=== PATIENT | female | born 1995 | race Caucasian/White ===

== ENCOUNTER 2017-02-05 21:52 | Emergency (ER) | payer OTHER ==
--- NOTE | 2017-02-05 21:57 | ED Physician Documentation ---
General Adult - HISTORIAN Historian: patient - HPI Stated Complaint: , ? dilated Chief Complaint: General Adult Onset: hours Timing: still present Severity: moderate Further Comments: yes (Pt is a 21 yo female @ 37 weeks. Pt was monitored for 4 hrs at [facility] last week and sent home. At that time contractions were 5 min apart and pt states that she was 3 cm dilated and 50% effaced. Pt has had some sharp intermittent vaginal pains that last a minute or more. No loss of fluid, no vag bleeding. Pt feels good movement. Pt called OB doctor at [facility] and was told to get checked to see if she is more dilated. Pt has planned induction for February 22.) - ROS CONST: no problems EYES/ENT: none CVS/RESP: none GI/: none MS/SKIN/LYMPH: none - PAST HX Past History: asthma, other ( x 3.) Surgeries/Procedures: cholecystectomy Allergies/Adverse Reactions: Allergies Allergy/AdvReac Type Severity Reaction Status Date / Time No Known Allergies Allergy Verified 02/05/17 22:33 Home Medications: Ambulatory Orders Medication Instructions Recorded Albuterol Sulfate [Proair Hfa] 2 inhalation IH Q 4-6 HRS PRN #1 05/10/15 each Cephalexin [Keflex] 500 mg PO Q12H #20 capsule 02/05/17 - SOCIAL HX Smoking History: non-smoker - FAMILY HX Family History: No - VITAL SIGNS Vital Signs: Vital Signs Temp Pulse Resp BP Pulse Ox 128/70 01/24/16 23:10 - REVIEWED ASSESSMENTS Nursing Assessment Reviewed: Yes Vitals Reviewed: Yes Progress - Progress Progress: Pt's front facer is Dr. Claudio Du. FHT's 128 U/a 1+ leukoesterase 1 L NS IVF in ER Keflex 500 mg po Rx Keflex 500 mg. Take one by mouth every 12 hrs for 10 days. D/w Dr. Byrd, on-call for Dr. Du at [facility]. Will d/c pt home. Pt should f/u at [facility] and go to either [facility] or [facility] if contractions increase or for any new concerns. General Adult Physical Exam - PHYSICAL EXAM GENERAL APPEARANCE: mild distress EENT: eye inspection normal, pharynx normal NECK: normal inspection, supple RESPIRATORY: no resp distress, chest non-tender, breath sounds normal CVS: reg rate & rhythm, heart sounds normal ABDOMEN: soft, no organomegaly, normal bowel sounds, other (gravid; pelvic digital exam 1-2 cm dilated, 40-50% effaced. ) BACK: normal inspection, no CVA tenderness SKIN: warm/dry, normal color EXTREMITIES: non-tender, normal range of motion, no evidence of injury NEURO: oriented X3, motor nml Discharge Clincal Impression: UTI (urinary tract infection) Qualifiers: Urinary tract infection type: site unspecified Hematuria presence: without hematuria Qualified Code(s): N39.0 - Urinary tract infection, site not specified Prescriptions: Cephalexin [Keflex] 500 mg PO Q12H #20 capsule Referrals: Primary Doctor,No [Primary Care Provider] - Home Medications: Ambulatory Orders Albuterol Sulfate [Proair Hfa] 2 inhalation IH Q 4-6 HRS PRN #1 each 05/10/15 Cephalexin [Keflex] 500 mg PO Q12H #20 capsule 02/05/17 Condition: Good Disposition: 01 HOME, SELF-CARE Decision to Admit: NO Decision Time: 23:13
[2017-02-05] MEDS ORDERED: CEPHALEXIN 250 MG CAPSULE PO ONE ×2 (22:16→23:23)
[2017-02-05] MEDS ORDERED: 0.9 % SODIUM CHLORIDE 1,000 ML IV ONE (22:16)
[2017-02-06 00:01] VITALS: BP 116/66
[2017-02-06 05:31] LABS: APPEARANCE,URINE CLEAR (CLEAR); COLOR,URINE YELLOW (YELLOW); OCCULT BLOOD,URINE NEGATIVE (NEGATIVE); UROBILINOGEN URINE 0.2 Eu (0.2-1.0)
== END 2017-02-05 23:50 | disposition home or self-care (01) ==
LOC: ED 21:52
DX: O23.43 Unspecified infection of urinary tract in pregnancy, third trimester (principal)
CPT/HCPCS: 81002; 87086; J7030; 99283; S1016

== ENCOUNTER 2017-06-15 10:09 | Outpatient (CLI) | payer OTHER ==
[2017-02-06 00:01] VITALS: BP 116/66
== END 2017-06-15 10:10 ==
LOC: LAB 10:09
PROVIDERS: ATTEND Physician Assistant
DX: R53.83 Other fatigue (principal); R63.5 Abnormal weight gain
CPT/HCPCS: 36415; 84439; 84443

== ENCOUNTER 2017-12-07 16:28 | Outpatient (CLI) | payer OTHER ==
[2017-02-06 00:01] VITALS: BP 116/66
== END 2017-12-07 16:30 ==
LOC: LABRHC 16:28
PROVIDERS: ATTEND Physician Assistant
DX: J02.9 Acute pharyngitis, unspecified (principal); R50.9 Fever, unspecified
CPT/HCPCS: 87070

== ENCOUNTER 2018-04-17 10:22 | Emergency (ER) | payer OTHER ==
[2018-04-17] MEDS ORDERED: ONDANSETRON HCL/PF 4 MG/ 2ML VIAL IVP ONE (10:41)
[2018-04-17] MEDS ORDERED: 0.9 % SODIUM CHLORIDE 1,000 ML IV ONE ×2 (10:41→10:43)
[2018-04-17] MEDS ORDERED: KETOROLAC TROMETHAMINE 30 MG/1ML VIAL IVP ONE (10:41)
--- NOTE | 2018-04-17 10:41 | ED Physician Documentation ---
General Adult - HISTORIAN Historian: patient - HPI Stated Complaint: abd pain Chief Complaint: General Adult Onset: hours (4) Timing: still present Severity: moderate Further Comments: yes (Pt is a 22 yo female with LLQ abd pain. Pt often has abd pain during menses, as now, but usually it is not so painful as this. Sx began at 4:00 am. Pain can vary in intensity. Pt has no hx kidney stone. Pt had been told she had endometriosis, but later was told she did not have endometriosis when she underwent surgery for BTL. Pt has hx cholecystectomy. Pt notes she has a chronically elevated wbc count as do other women in her family. Pt has had some diarrhea, which says she gets from time to time.) - ROS CONST: no problems EYES/ENT: none CVS/RESP: none GI/: abdominal pain (LLQ), other (diarrhea) MS/SKIN/LYMPH: none - PAST HX Past History: other (dysmenorrhea, asthma, ? endometriosis) Surgeries/Procedures: BTL, cholecystectomy, other (lypoma removal x 3) Allergies/Adverse Reactions: Allergies Allergy/AdvReac Type Severity Reaction Status Date / Time aspirin AdvReac Vomiting Verified 04/17/18 10:59 - SOCIAL HX Smoking History: cigarettes - FAMILY HX Family History: No - VITAL SIGNS Vital Signs: Vital Signs Temp Pulse Resp BP Pulse Ox 116/66 02/05/17 23:50 - REVIEWED ASSESSMENTS Nursing Assessment Reviewed: Yes Vitals Reviewed: Yes Progress - Progress Progress: NS 1 L IVF Zofran 4 mg IV Toradol 30 mg IV much improvement after Toradol X-ray abd: Gas filled mildly dilated small bowel is present in the left midabdomen. There is gas and stool in the cecum and the hepatic flexure of the colon. Surgical clips are present consistent with cholecystectomy. The osseous structures are normal for age. Rx Toradol 10 mg. Take 1 every 6 hrs as needed for pain. Maximum 4 tablets/ day. Maximum duration 5 days. Rx Zofran ODT 4 mg. Take one every 8 hrs as needed for nausea/vomiting. Return to radiology dept. for ultrasound study on 04-19-18 at 10:00 am to evaluate for ovarian cyst. d/w Dr. Frye re: follow up after u/s. General Adult Physical Exam - PHYSICAL EXAM GENERAL APPEARANCE: moderate distress EENT: pharynx normal NECK: normal inspection, supple RESPIRATORY: no resp distress, chest non-tender, breath sounds normal CVS: reg rate & rhythm, heart sounds normal ABDOMEN: soft, normal bowel sounds, tenderness (LLQ) SKIN: warm/dry, normal color EXTREMITIES: non-tender, normal range of motion, no evidence of injury NEURO: oriented X3, motor nml, sensation nml Discharge Clincal Impression: History of dysmenorrhea Abdominal pain Qualifiers: Abdominal location: left lower quadrant Qualified Code(s): R10.32 - Left lower quadrant pain Referrals: Primary Doctor,No [Primary Care Provider] - Condition: Stable Disposition: HOME, SELF-CARE Decision to Admit: NO Decision Time: 13:00
[2018-04-17] MEDS ORDERED: KETOROLAC TROMETHAMINE 30 MG/1ML VIAL ONE (10:42)
[2018-04-17] MEDS ORDERED: ONDANSETRON HCL/PF 4 MG/ 2ML VIAL ONE (10:43)
[2018-04-17 11:07] LABS: BASOPHILS % 0.7 (0.0-1.5); EOSINOPHILS % 2.6 % (0.0-6.8); MEAN CORPUSCULAR HEMOGLOBIN 29.6 pg (28.0-34.0); MONOCYTES % 3.2 % (0.0-11.0); NEUTROPHILS # 12.1 # k/uL (1.4-7.7)
[2018-04-17 11:21] LABS: eGFR (African) > 60; eGFR (Non-African) > 60
[2018-04-17 13:10] VITALS: BP 102/52
--- NOTE | 2018-04-17 18:21 | Diagnostic Imaging Report ---
MERE LAWSON [facility] [id number] [facility] [address] [place] [address]. [id number] Report Submission Date: Apr 17, 2018 12:30:39 PM CDT Patient Study Name: FAIZA MISTRY Date: Apr 17, 2018 11:58:52 AM CDT Modality Type: DX Gender: F Description: ABDOMEN : 89 Institution: [facility] Physician: MERE LAWSON Abdomen KUB Date of Exam: April 17, 2018. History: LT ABDOMINAL PAIN X 1 DAYS (Hx) / ITS.REASON abd pain Findings: Gas filled mildly dilated small bowel is present in the left midabdomen. There is gas and stool in the cecum and the hepatic flexure of the colon. Surgical clips are present consistent with cholecystectomy. The osseous structures are normal for age. Impression: Nonspecific abdominal bowel gas pattern with mildly dilated small bowel in the left midabdomen. Electronically signed on Apr 17, 2018 12:30:39 PM CDT by: Thea ROBISON
[2018-04-18 07:34] LABS: APPEARANCE,URINE CLOUDY (CLEAR); COLOR,URINE YELLOW (YELLOW); OCCULT BLOOD,URINE 3+ (NEGATIVE); URINE HCG NEGATIVE (NEGATIVE); UROBILINOGEN URINE 0.2 Eu (0.2-1.0)
== END 2018-04-17 13:01 | disposition home or self-care (01) ==
LOC: ED 10:22
DX: R10.32 Left lower quadrant pain (principal); Z87.42 Personal history of other diseases of the female genital tract
CPT/HCPCS: 74018; 80053; 81002; 81025; 85025; J1885; J2405; J7030; 96365; 96375; 99284; S1016

== ENCOUNTER 2018-05-20 11:42 | Emergency (ER) | payer OTHER ==
--- NOTE | 2018-05-20 11:44 | ED Physician Documentation ---
General Adult - HISTORIAN Historian: patient - HPI Stated Complaint: abdominal pain x 1 day Chief Complaint: Abdominal Pain Onset: hours (6) Timing: still present, worse since Severity: moderate Further Comments: yes (She reports she "always has bad period cramps but today I feel like someone is stabbing me and its the worst pain I have ever had" She states the pain started last night early this am. She states that she has stabbing RLQ abdominal pain that is increased with touch . No fever . She denies any vaginal discharge. No new sexual partners.) - ROS CONST: no problems - PAST HX Past History: none Other History: none Surgeries/Procedures: none Immunizations: UTD Allergies/Adverse Reactions: Allergies Allergy/AdvReac Type Severity Reaction Status Date / Time aspirin AdvReac Vomiting Verified 04/17/18 10:59 - SOCIAL HX Smoking History: cigarettes Alcohol Use: none Drug Use: none - FAMILY HX Family History: No - VITAL SIGNS Vital Signs: Vital Signs Temp Pulse Resp BP Pulse Ox 102/52 04/17/18 13:01 - REVIEWED ASSESSMENTS Nursing Assessment Reviewed: Yes Vitals Reviewed: Yes Progress - Progress Progress: 1500: results discussed with pt. She is agreeable to plan DG ED Results Lab/Radiology - Radiology Radiology Impressions: Examination: CT Abdomen/pelvis History: CT A/P WITH CONTRAST, LLQ PAIN TODAY AND ELEVATE WBC (Hx) Comparison exams: None available Technique: CT Abdomen/pelvis with IV protocol. Findings: Liver demonstrates diffuse low attenuation. Right hepatic lobe vascular structure measuring 2 cm diameter. Surgical clips gallbladder fossa. Spleen, adrenals, pancreas, and kidneys are without gross irregularity given exam technique. No suspicious renal calcifications. Ureters are nondilated in their course through the abdomen and pelvis. No central calcifications. Bladder margin within normal limits. Abdominal aorta without aneurysm or peripheral atherosclerotic disease. Cardiac silhouette is not enlarged. No pericardial effusion. Numerous prominent small bowel loops with air-fluid levels. Stool within the large bowel limiting sensitivity. No mesenteric inflammatory changes or free fluid. Appendix is visualized and is without inflammatory changes. Osseous structures within normal limits. Lung bases without infiltrate. No effusion. Impression: Prominent loops of small bowel with air-fluid levels suggesting enteritis. No obstruction. No acute upper abdominal organ inflammatory process. Fatty liver with likely hepatic hemangioma. No suspicious renal calcifications or abnormal ureteric dilation. No lung base consolidation or effusion. Electronically signed on May 20, 2018 2:06:22 PM CDT by: Carroll Louis General Adult Physical Exam - PHYSICAL EXAM GENERAL APPEARANCE: no distress EENT: eye inspection normal, ENT inspection normal, no signs of dehydration NECK: normal inspection RESPIRATORY: no resp distress, chest non-tender, breath sounds normal CVS: reg rate & rhythm, heart sounds normal, equal pulses, no murmur ABDOMEN: soft, no distension, tenderness, guarding, other (she is screaming out in pain with palpation in RLQ of abdomen . ). No: rebound, distended BACK: normal inspection, no CVA tenderness SKIN: warm/dry, normal color EXTREMITIES: non-tender, normal range of motion, no evidence of injury, no edema NEURO: oriented X3 Discharge Clincal Impression: Gastroenteritis Referrals: Primary Doctor,No [Primary Care Provider] - 2 Days Additional Instructions: 1. Increase fluids 2. Leslie diet 3. Zofran 4 mg take 1 by mouth every 8 hours as needed for nausea 4. See PCP in 2-4 days for follow up 5. Return to ER for any concerns Condition: Stable Disposition: 01 HOME, SELF-CARE Decision to Admit: NO Date of Decison to Admit: 05/20/18 Decision Time: 15:11
[2018-05-20 11:54] VITALS: BP 136/98
[2018-05-20] MEDS ORDERED: 0.9 % SODIUM CHLORIDE 1,000 ML IV SCH (12:00)
[2018-05-20] MEDS ORDERED: 0.9 % SODIUM CHLORIDE 1,000 ML IV ONE (12:14)
[2018-05-20 12:24] LABS: BASOPHILS % 0.7 (0.0-1.5); EOSINOPHILS % 2.3 % (0.0-6.8); MEAN CORPUSCULAR HEMOGLOBIN 29.5 pg (28.0-34.0); MEAN CORPUSCULAR VOLUME 87.2 fl (80.0-100.0); MONOCYTES % 3.8 % (0.0-11.0); NEUTROPHILS # 9.4 # k/uL (1.4-7.7)
[2018-05-20 12:39] LABS: eGFR (African) > 60; eGFR (Non-African) > 60
[2018-05-20] MEDS ORDERED: KETOROLAC TROMETHAMINE 30 MG/1ML VIAL IVP ONE (15:02)
[2018-05-20 15:13] LABS: APPEARANCE,URINE CLEAR (CLEAR); COLOR,URINE AMBER (YELLOW); OCCULT BLOOD,URINE 3+ (NEGATIVE); PH URINE 5.5 (5.0 - 8.0); URINE HCG NEGATIVE (NEGATIVE); UROBILINOGEN URINE 0.2 Eu (0.2-1.0)
--- NOTE | 2018-05-20 18:51 | Diagnostic Imaging Report ---
TONEY ONEIL [facility] [id number] Counts Include [address] Beds At [facility] [address] [place], [place]. [address] Report Submission Date: May 20, 2018 2:06:22 PM CDT Patient Study Name: FAIZA MISTRY Date: May 20, 2018 1:30:55 PM CDT Modality Type: CT\SR Gender: F Description: CT ABD PELVIS W/ CON : 89 Institution: [facility] Physician: TONEY ONEIL Examination: CT Abdomen/pelvis History: CT A/P WITH CONTRAST, LLQ PAIN TODAY AND ELEVATE WBC (Hx) Comparison exams: None available Technique: CT Abdomen/pelvis with IV protocol. Findings: Liver demonstrates diffuse low attenuation. Right hepatic lobe vascular structure measuring 2 cm diameter. Surgical clips gallbladder fossa. Spleen, adrenals, pancreas, and kidneys are without gross irregularity given exam technique. No suspicious renal calcifications. Ureters are nondilated in their course through the abdomen and pelvis. No central calcifications. Bladder margin within normal limits. Abdominal aorta without aneurysm or peripheral atherosclerotic disease. Cardiac silhouette is not enlarged. No pericardial effusion. Numerous prominent small bowel loops with air-fluid levels. Stool within the large bowel limiting sensitivity. No mesenteric inflammatory changes or free fluid. Appendix is visualized and is without inflammatory changes. Osseous structures within normal limits. Lung bases without infiltrate. No effusion. Impression: Prominent loops of small bowel with air-fluid levels suggesting enteritis. No obstruction. No acute upper abdominal organ inflammatory process. Fatty liver with likely hepatic hemangioma. No suspicious renal calcifications or abnormal ureteric dilation. No lung base consolidation or effusion. Electronically signed on May 20, 2018 2:06:22 PM CDT by: Carroll ROBISON
== END 2018-05-20 15:28 | disposition home or self-care (01) ==
LOC: ED 11:42
DX: K52.9 Noninfective gastroenteritis and colitis, unspecified (principal)
CPT/HCPCS: 74177; 80053; 81002; 81025; 83690; 85025; 96365; 96375; 99284; J1885; Q9967; J7030; S1016

== ENCOUNTER 2018-06-10 17:00 | Emergency (ER) | payer OTHER ==
--- NOTE | 2018-06-10 17:16 | ED Physician Documentation ---
General Adult - HISTORIAN Historian: patient - HPI Stated Complaint: chills, sweats Chief Complaint: General Adult Onset: days ago (1) Timing: still present Severity: moderate Further Comments: yes (Pt is a 22 yo female who had chills and dizziness this am. No cough, no UTI sx, BM's have been normal. Pt had some mild nausea earlier today.) - ROS CONST: chills, other (malaise) EYES/ENT: none. denies: sore throat CVS/RESP: none GI/: nausea (mild) MS/SKIN/LYMPH: none NEURO/PSYCH: dizziness - PAST HX Past History: asthma Surgeries/Procedures: BTL, cholecystectomy - SOCIAL HX Smoking History: cigarettes - FAMILY HX Family History: No - VITAL SIGNS Vital Signs: Vital Signs Temp Pulse Resp BP Pulse Ox 136/98 05/20/18 15:28 - REVIEWED ASSESSMENTS Nursing Assessment Reviewed: Yes Vitals Reviewed: Yes <Johann Lopez - Last Filed: 06/10/18 18:39> - VITAL SIGNS Vital Signs: Vital Signs Temp Pulse Resp BP Pulse Ox 97.1 F L 101 H 16 110/67 98 06/10/18 17:10 06/10/18 17:22 06/10/18 17:10 06/10/18 17:22 06/10/18 17:10 <TRISTEN RACHEL - Last Filed: 06/10/18 19:26> - PAST HX Allergies/Adverse Reactions: Allergies Allergy/AdvReac Type Severity Reaction Status Date / Time aspirin AdvReac Vomiting Verified 06/10/18 17:09 Progress - Progress Progress: NS 1 L IVF x 2 improved <Johann Lopez - Last Filed: 06/10/18 18:39> ED Results Lab/Radiology - Orders Orders: ED Orders Category Date Time Status UA [URINALYSIS] Routine Lab 06/10/18 Ordered <Johann Lopez - Last Filed: 06/10/18 18:39> - Lab Results Lab Results: Lab Results 06/10/18 06/10/18 06/10/18 18:45 18:45 18:45 WBC 12.20 K/ul H K/ul (4.00-12.00) RBC 5.07 M/ul M/ul (3.90-5.20) Hgb 14.3 g/dL g/dL (12.0-16.0) Hct 44.1 % % (34.5-46.5) MCV 87.0 fl fl (80.0-100.0) MCH 28.2 pg pg (28.0-34.0) MCHC 32.4 g/dL g/dL (30.0-36.0) RDW 13.6 % % (11.3-14.3) Plt Count 210 K/mm3 K/mm3 (130-400) Neut % (Auto) 66.7 % % (39.0-79.0) Lymph % (Auto) 25.3 % % (16.0-50.0) [place] % (Auto) 4.3 % % (0.0-11.0) Eos % (Auto) 2.0 % % (0.0-6.8) Baso % (Auto) 0.8 (0.0-1.5) Neut # (Auto) 8.1 # k/uL H # k/uL (1.4-7.7) Lymph # (Auto) 3.1 # k/uL # k/uL (0.6-4.0) [place] # (Auto) 0.5 # k/uL # k/uL (0.0-0.9) Eos # (Auto) 0.2 # k/uL # k/uL (0.0-0.6) Baso # (Auto) 0.1 # k/uL # k/uL (0.0-0.5) Reactive Lymphs % 0.9 % % (0.0-5.0) Reactive Lymphs # 0.1 # k/uL # k/uL (0.0-0.8) Sodium 139 mmol/L mmol/L (136-145) Potassium 3.8 mmol/L mmol/L (3.5-5.1) Chloride 104 mmol/L mmol/L (98-107) Carbon Dioxide 26 mmol/L mmol/L (22-30) BUN 11 mg/dL mg/dL (7-17) Creatinine 0.50 mg/dL L mg/dL (0.52-1.04) Estimated Creat Clear 302 Est GFR ( Amer) > 60 (60 - ) Est GFR (Non-Af Amer) > 60 (60 - ) Glucose 107 mg/dL H mg/dL (74-106) Calcium 8.4 mg/dL mg/dL (8.4-10.2) Total Bilirubin 0.2 mg/dL mg/dL (0.2-1.3) AST 23 U/L U/L (15-46) ALT 22 U/L U/L (13-69) Alkaline Phosphatase 57 U/L U/L (38-126) Total Protein 7.2 g/dL g/dL (6.3-8.2) Albumin 4.1 g/dL g/dL (3.5-5.0) Monoscreen Negative (NEGATIVE) - Orders Orders: ED Orders Category Date Time Status Orthostatics 1T Care 06/10/18 17:[address] IV Lock 1T Care 06/10/18 17:22 Active CBC/PLATELET/DIFF Routine Lab 06/10/18 18:45 Completed CMP [CMP] Routine Lab 06/10/18 18:45 Completed MONOTEST Stat Lab 06/10/18 18:45 Completed UA [URINALYSIS] Routine Lab 06/10/18 Ordered 0.9 % Sodium Chloride [Normal Saline] 1,000 ml Med 06/10/18 17:36 Discontinued IV .STK-MED 0.9 % Sodium Chloride [Normal Saline] 1,000 ml Med 06/10/18 17:40 Discontinued IV Q1H 0.9 % Sodium Chloride [Normal Saline] 1,000 ml Med 06/10/18 18:33 Active IV Q1H Ondansetron HCl/Pf [Zofran 4 mg/2 ml] Med 06/10/18 17:22 Discontinued 4 mg IVP NOW ONE <TRISTEN RACHEL - Last Filed: 06/10/18 19:26> General Adult Physical Exam - PHYSICAL EXAM GENERAL APPEARANCE: mild distress EENT: pharynx normal NECK: normal inspection, supple RESPIRATORY: no resp distress, chest non-tender, breath sounds normal CVS: reg rate & rhythm, heart sounds normal ABDOMEN: soft, no organomegaly, normal bowel sounds BACK: normal inspection, no CVA tenderness SKIN: warm/dry, normal color EXTREMITIES: non-tender, normal range of motion, no evidence of injury, no edema NEURO: oriented X3, motor nml, sensation nml <Johann Lopez - Last Filed: 06/10/18 18:39> Discharge Decision to Admit: NO <Johann Lopez - Last Filed: 06/10/18 18:39> Decision to Admit: NO Decision Time: 19:23 <TRISTEN RACHEL - Last Filed: 06/10/18 19:26> Clincal Impression: Mild dehydration Referrals: Primary Doctor,No [Primary Care Provider] - Additional Instructions: Drink plenty of water. Return to the ER if you are not able to urinate for 8 hours. Condition: Stable Disposition: 01 HOME, SELF-CARE
[2018-06-10] MEDS ORDERED: ONDANSETRON HCL/PF 4 MG/ 2ML VIAL IVP ONE (17:22)
[2018-06-10] MEDS ORDERED: 0.9 % SODIUM CHLORIDE 1,000 ML IV ONE ×3 (17:36→18:33)
[2018-06-10 17:58] LABS: BASOPHILS % 0.8 (0.0-1.5); MEAN CORPUSCULAR HEMOGLOBIN 28.2 pg (28.0-34.0); MONOCYTES % 4.3 % (0.0-11.0); NEUTROPHILS # 8.1 # k/uL (1.4-7.7)
[2018-06-10 18:18] LABS: eGFR (African) > 60; eGFR (Non-African) > 60
[2018-06-11 03:59] VITALS: BP 95/58
[2018-06-11 05:41] LABS: APPEARANCE,URINE CLOUDY (CLEAR); COLOR,URINE AMBER (YELLOW); OCCULT BLOOD,URINE NEGATIVE (NEGATIVE)
[2018-06-11 05:42] LABS: PH URINE 5.5 (5.0 - 8.0)
== END 2018-06-10 19:25 | disposition home or self-care (01) ==
LOC: ED 17:00
DX: E86.0 Dehydration (principal); R11.0 Nausea; R50.9 Fever, unspecified
CPT/HCPCS: 80053; 81002; 85025; 86308; J2405; J7030; 96360; 96361; 96375; S1016